=== PATIENT | male | born 1985 | race Caucasian/White ===

== ENCOUNTER 2021-02-18 06:08 | Emergency (ER) | payer SELFPAY ==
[~2021-02-18] VITALS: Ht 170.2 cm; Wt 72.6 kg
[2021-02-18 06:10] VITALS: BP_SYST 140
--- NOTE | 2021-02-18 06:12 | NUR ---
Patient BIB by civil lawyer. C/O medical clearance x today. Per reported, no injury or trauma, A/O,X4, denies pain, vss.
--- NOTE | 2021-02-18 06:15 | NUR ---
QUENTIN Colon at bedside examining patient.
[2021-02-18 06:36] VITALS: BP_SYST 140
--- NOTE | 2021-02-18 06:36 | NUR ---
Patient D/C to custody.
== END 2021-02-18 06:36 | disposition home or self-care (01) ==
LOC: SED 06:08
DX: Z02.89 Encounter for other administrative examinations (principal)
CPT/HCPCS: 99283